=== PATIENT | male | born 1995 | race African-American/Black ===

== ENCOUNTER 2018-05-31 17:58 | Emergency (ER) | payer SELFPAY | END 2018-05-31 18:36 | disposition left against medical advice (07) | LOC: ER 17:58 | DX: S49.82XA Other specified injuries of left shoulder and upper arm, initial encounter (principal); Z53.21 Procedure and treatment not carried out due to patient leaving prior to being seen by health care provider; X58.XXXA Exposure to other specified factors, initial encounter; Y93.67 Activity, basketball; Y92.89 Other specified places as the place of occurrence of the external cause; Y99.8 Other external cause status ==